=== PATIENT | female | born 1990 | race Caucasian/White ===

== ENCOUNTER → 2018-07-13 | Emergency (ER) | payer OTHER ==
[~2018-07-13] VITALS: Ht 157.5 cm; Wt 132.0 kg
[~2018-07-13] MED LIST: ADIPEX-P37.5 MG; HEMATRON P.O.1 UDTAB; IMODIUM A-D2 MG PO; LOW-OGESTREL1 TAB; PROTONIX20 MG PO; provera
== END | disposition home or self-care (01) ==
LOC: ER 20:30
DX: G43.809 Other migraine, not intractable, without status migrainosus (principal); K29.60 Other gastritis without bleeding

== ENCOUNTER 2018-09-30 01:10 | Emergency (ER) | payer OTHER ==
[~2018-09-30] VITALS: Ht 157.5 cm; Wt 131.5 kg
== END 2018-09-30 10:42 | disposition home or self-care (01) ==
LOC: ER 01:10
DX: K52.9 Noninfective gastroenteritis and colitis, unspecified (principal); E86.0 Dehydration

== ENCOUNTER 2020-06-06 12:45 | Emergency (ER) | payer OTHER ==
[~2020-06-06] VITALS: Ht 157.5 cm; Wt 131.5 kg
== END 2020-06-06 18:31 | disposition home or self-care (01) ==
LOC: ER 12:45
DX: K29.60 Other gastritis without bleeding (principal)